=== PATIENT | female | born 1970 | race African-American/Black ===

== ENCOUNTER 2018-06-07 11:21 | Emergency (ER) | payer MEDICAID, OTHER ==
[~2018-06-07] VITALS: Ht 167.6 cm; Wt 103.0 kg
[~2018-06-07 11:21] MED LIST: FLEXIRIL; MOTRIN; TYLENOL
[2018-06-07 11:33] VITALS: BP 148/67
== END 2018-06-07 13:14 | disposition home or self-care (01) ==
LOC: ER 11:21
DX: J40 Bronchitis, not specified as acute or chronic (principal); F41.9 Anxiety disorder, unspecified; M54.30 Sciatica, unspecified side; Z90.710 Acquired absence of both cervix and uterus; Z88.2 Allergy status to sulfonamides; Z88.1 Allergy status to other antibiotic agents; Z98.890 Other specified postprocedural states
CPT/HCPCS: 99283

== ENCOUNTER 2019-06-29 23:58 | Emergency (ER) | payer MEDICAID ==
[~2019-06-29] VITALS: Ht 165.1 cm; Wt 104.3 kg
[2019-06-30 00:13] VITALS: BP 17/77
[2019-06-30] MEDS ORDERED: ACETAMINOPHEN 325MG TABLET PO ONE (00:30)
== END 2019-06-30 01:53 | disposition home or self-care (01) ==
LOC: ER 23:58
DX: J06.9 Acute upper respiratory infection, unspecified (principal)
CPT/HCPCS: 71045; 99283

== ENCOUNTER 2019-07-29 10:37 | Emergency (ER) | payer MEDICAID ==
[~2019-07-29] VITALS: Ht 167.6 cm; Wt 110.0 kg
[2019-07-29 12:29] LABS: CLARITY URINE CLEAR (CLEAR); COLOR URINE YELLOW (YELLOW); KETONES URINE NEGATIVE (NEGATIVE); LEUKOCYTE ESTERASE URINE 2+ (NEGATIVE); NITRITE URINE NEGATIVE (NEGATIVE); OCCULT BLOOD URINE TRACE (NEGATIVE); PH URINE 5.5 (4.5-8.0); PROTEIN URINE NEGATIVE (NEGATIVE); SPECIFIC GRAVITY URINE 1.022 (1.005-1.030); UROBILINOGEN URINE 0.2 E.U./dL (0.2-1.0)
[2019-07-29 13:41] VITALS: BP 142/73
== END 2019-07-29 13:49 | disposition home or self-care (01) ==
LOC: ER 10:54
DX: J40 Bronchitis, not specified as acute or chronic (principal); N39.0 Urinary tract infection, site not specified; Z88.2 Allergy status to sulfonamides; Z88.0 Allergy status to penicillin
CPT/HCPCS: 71045; 81003; 93005; 99285

== ENCOUNTER 2019-07-31 04:46 | Emergency (ER) | payer MEDICAID ==
[~2019-07-31] VITALS: Ht 167.6 cm; Wt 102.0 kg
[2019-07-31 06:08] LABS: CHLORIDE 111 mEq/L (98-107)
[2019-07-31 06:19] LABS: BASOPHILS % 0.6 % (0.0-2.0); EOSINOPHILS % 3.4 % (0.0-5.0); HEMATOCRIT. 36.9 % (36.0-48.0); HEMOGLOBIN. 12.5 g/dL (12.0-16.0); LYMPHOCYTES % 32.7 % (20.0-50.0); MEAN CORPUSCULAR HEMOGLOBIN 29.8 pg (28.0-32.0); MEAN CORPUSCULAR VOLUME 87.9 fL (81.0-99.0); MEAN PLATELET VOLUME 8.6 fl (7.4-10.4); MONOCYTES % 10.5 % (2.0-8.0); NEUTROPHILS % 52.8 % (40.0-76.0); PLATELET 244 x1000/uL (130-400); RED CELL DISTRIBUTION WIDTH 12.9 % (11.6-14.6)
[2019-07-31] MEDS ORDERED: LORAZEPAM 1MG TABLET PO ONE (06:30)
[2019-07-31 07:36] VITALS: BP 120/78
== END 2019-07-31 07:55 | disposition home or self-care (01) ==
LOC: ER 04:46
DX: R07.89 Other chest pain (principal); F41.9 Anxiety disorder, unspecified; Z88.2 Allergy status to sulfonamides; Z88.1 Allergy status to other antibiotic agents; Z79.899 Other long term (current) drug therapy
CPT/HCPCS: 36415; 71045; 80053; 83880; 84484; 85025; 99284

== ENCOUNTER 2019-12-26 10:03 | Emergency (ER) | payer MEDICAID ==
[~2019-12-26] VITALS: Ht 165.1 cm; Wt 95.4 kg
[2019-12-26] MEDS ORDERED: NITROGLYCERIN 0.4MG TABLET SL SL PRN (10:45)
[2019-12-26 11:27] LABS: BASOPHILS % 0.8 % (0.0-2.0); EOSINOPHILS % 2.7 % (0.0-5.0); HEMATOCRIT. 36.5 % (36.0-48.0); LYMPHOCYTES % 39.2 % (20.0-50.0); MEAN CORPUSCULAR HEMOGLOBIN 29.4 pg (28.0-32.0); MEAN CORPUSCULAR VOLUME 89.4 fL (81.0-99.0); MONOCYTES % 9.4 % (2.0-8.0); NEUTROPHILS % 47.9 % (40.0-76.0); PLATELET 210 x1000/uL (130-400); RED BLOOD CELL COUNT 4.08 mill/uL (4.2-5.4); RED CELL DISTRIBUTION WIDTH 13.4 % (11.6-14.6)
[2019-12-26 11:30] LABS: CHLORIDE 110 mEq/L (98-107)
[2019-12-26 13:16] VITALS: BP 160/85
== END 2019-12-26 13:31 | disposition home or self-care (01) ==
LOC: ER 10:18
DX: R07.89 Other chest pain (principal); R03.0 Elevated blood-pressure reading, without diagnosis of hypertension; F41.9 Anxiety disorder, unspecified
CPT/HCPCS: 36415; 71045; 80053; 83880; 84484; 85025; 93005; 99285

== ENCOUNTER 2020-05-14 00:45 | Emergency (ER) | payer MEDICAID, OTHER ==
[~2020-05-14] VITALS: Ht 167.6 cm; Wt 94.0 kg
[2020-05-14] MEDS ORDERED: KETOROLAC 30MG/ML VIAL IM ONE (02:15)
[2020-05-14 02:27] VITALS: BP 134/69
[2020-05-14] MEDS ORDERED: IBUP-1523 MT (02:44)
== END 2020-05-14 03:12 | disposition home or self-care (01) ==
LOC: ER 00:45
DX: M54.5 Low back pain (principal); Z87.828 Personal history of other (healed) physical injury and trauma; R03.0 Elevated blood-pressure reading, without diagnosis of hypertension; N39.0 Urinary tract infection, site not specified
CPT/HCPCS: 81025; 96372; 99283; J1885

== ENCOUNTER 2021-02-08 09:25 | Emergency (ER) | payer OTHER ==
[~2021-02-08] VITALS: Ht 165.1 cm; Wt 104.0 kg
[~2021-02-08 09:25] MED LIST changes: +IBUP-1523 MT
[2021-02-08 09:33] VITALS: BP 135/70
[2021-02-08] MEDS ORDERED: ALBU6.7H9 INH (10:29)
[2021-02-08] MEDS ORDERED: P20 MT (10:29)
== END 2021-02-08 10:54 | disposition home or self-care (01) ==
LOC: ER 09:25
DX: J20.9 Acute bronchitis, unspecified (principal); R06.2 Wheezing; Z20.822 Contact with and (suspected) exposure to COVID-19; Z90.710 Acquired absence of both cervix and uterus; Z88.2 Allergy status to sulfonamides; Z88.0 Allergy status to penicillin
CPT/HCPCS: 71045; 99284; C9803; U0003; U0005

== ENCOUNTER 2021-07-15 06:33 | Inpatient (IN) | payer OTHER ==
[~2021-07-15] VITALS: Ht 167.6 cm; Wt 104.4 kg
[~2021-07-15 06:33] MED LIST changes: +ALBU6.7H9 INH; +P20 MT
[2021-07-15 07:22] LABS: HEMATOCRIT. 38.7 % (36.0-48.0); HEMOGLOBIN. 12.8 g/dL (12.0-16.0); MEAN PLATELET VOLUME 8.5 fl (7.4-10.4); PLATELET 242 x1000/uL (130-400); RED CELL DISTRIBUTION WIDTH 13.1 % (11.6-14.6)
[2021-07-15 07:28] LABS: CHLORIDE 111 mEq/L (98-107)
[2021-07-15 07:32] LABS: PROTHROMBIN TIME 10.5 sec (9.6-11.0)
[2021-07-15 07:58] LABS: PLATELET ESTIMATE NORMAL
[2021-07-15] MEDS ORDERED: ASPIRIN 325MG EC TABLET PO ONE (08:00)
[2021-07-15] MEDS ORDERED: POTASSIUM CHLORIDE 20MEQ TABLET SR PO ONE (08:00)
[2021-07-15] MEDS ORDERED: SERTRALINE HCL 100MG TABLET PO SCH (08:30)
[2021-07-15] MEDS ORDERED: SODIUM CHLORIDE 0.9% 1,000 ML IV ONE ×2 (09:30→13:15)
[2021-07-15 09:43] LABS: CLARITY URINE CLOUDY (CLEAR); COLOR URINE ORANGE (YELLOW); KETONES URINE NEGATIVE (NEGATIVE); LEUKOCYTE ESTERASE URINE 2+ (NEGATIVE); NITRITE URINE POSITIVE (NEGATIVE); OCCULT BLOOD URINE NEGATIVE (NEGATIVE); PROTEIN URINE 1+ (NEGATIVE); SPECIFIC GRAVITY URINE 1.033 (1.005-1.030)
[2021-07-15] MEDS ORDERED: CEFTRIAXONE 1 G PREMIX 50 ML IV ONE (10:15)
[2021-07-15] MEDS ORDERED: CEFTRIAXONE 1 G PREMIX 50 ML IV SCH (14:15)
[2021-07-15] MEDS ORDERED: LORAZEPAM 0.5MG TABLET PO SCH (16:00)
[2021-07-15 17:30] VITALS: BP 137/62
[2021-07-15 20:00] VITALS: BP_SYST 132; BP_SYST 138; BP_DIAS 57; BP_DIAS 72
[2021-07-16] VITALS: BP 138/87
[2021-07-16 04:00] VITALS: BP 113/67
[2021-07-16 06:50] LABS: BASOPHILS % 0.3 % (0.0-2.0); EOSINOPHILS % 7.2 % (0.0-5.0); HEMATOCRIT. 35.2 % (36.0-48.0); HEMOGLOBIN. 11.6 g/dL (12.0-16.0); LYMPHOCYTES % 22.8 % (20.0-50.0); MEAN CORPUSCULAR HEMOGLOBIN 29.1 pg (28.0-32.0); MEAN PLATELET VOLUME 8.8 fl (7.4-10.4); MONOCYTES % 7.7 % (2.0-8.0); PLATELET 213 x1000/uL (130-400); RED CELL DISTRIBUTION WIDTH 13.4 % (11.6-14.6)
[2021-07-16 07:09] LABS: CHLORIDE 113 mEq/L (98-107)
[2021-07-16 08:00] VITALS: BP 136/67
[2021-07-16] MEDS ORDERED: FISH MT (08:35)
[2021-07-16] MEDS ORDERED: CHOL500051 (08:35)
[2021-07-16] MEDS ORDERED: SERT100T MT (08:35)
[2021-07-16] MEDS ORDERED: LORA-249 MT (08:35)
[2021-07-16] MEDS ORDERED: MULT-1146 MT (08:35)
[2021-07-16] MEDS ORDERED: POTA8CAP20 MT (08:35)
[2021-07-16] MEDS ORDERED: LORAZEPAM 0.5MG TABLET PO PRN (09:00)
[2021-07-16] MEDS ORDERED: CEFTRIAXONE 1,000 MG in DEXTROSE 5% WATER 50 ML IV SCH ×4 (09:00)
[2021-07-16] MEDS ORDERED: ACETAMINOPHEN 325MG TABLET PO PRN (09:15)
[2021-07-16 09:28] LABS: *AMPHETAMINES SCREEN URINE NEGATIVE (NEGATIVE); *BARBITURATES SCREEN URINE NEGATIVE (NEGATIVE); *BENZODIAZEPINES SCREEN URINE NEGATIVE (NEGATIVE); *COCAINE SCREEN URINE NEGATIVE (NEGATIVE); CANNABINOID URINE SCREEN NEGATIVE (NEGATIVE); METHADONE URINE SCREEN NEGATIVE (NEGATIVE); OPIATES URINE SCREEN NEGATIVE (NEGATIVE); PHENCYCLIDINE URINE SCREEN NEGATIVE (NEGATIVE)
[2021-07-16] MEDS ORDERED: SERTRALINE HCL 100MG TABLET PO SCH (09:30)
[2021-07-16 12:00] VITALS: BP 135/79
[2021-07-16] MEDS ORDERED: LEVO500T90 MT (12:10)
[2021-07-16 13:23] VITALS: BP 135/79
[2021-07-19 04:11] LABS: NEISSERIA GONORRHOEAE NAA Negative (Negative)
== END 2021-07-16 14:10 | disposition home or self-care (01) | DRG 720 ==
LOC: ER 06:33 → EDBEDREQTM 12:57 → 6WST 12:57 → EDBEDREQSVC 13:01 → EDBEDREQ 13:01 → ENRESERV 15:36
PROVIDERS: ADMIT Internal Medicine; ATTEND Internal Medicine
DX: A41.9 Sepsis, unspecified organism (principal); E44.1 Mild protein-calorie malnutrition; E87.8 Other disorders of electrolyte and fluid balance, not elsewhere classified; E87.6 Hypokalemia; G90.8 Other disorders of autonomic nervous system; E66.9 Obesity, unspecified; F41.9 Anxiety disorder, unspecified; N39.0 Urinary tract infection, site not specified; Z68.37 Body mass index [BMI] 37.0-37.9, adult; Z90.710 Acquired absence of both cervix and uterus; Z88.1 Allergy status to other antibiotic agents; Z88.2 Allergy status to sulfonamides; Z88.8 Allergy status to other drugs, medicaments and biological substances; Z79.899 Other long term (current) drug therapy
CPT/HCPCS: 36415; 71045; 80048; 80053; 80305; 81003; 83605; 83880; 84484; 85025; 87491; 87591; 93005; 99291; J0696; J7030; J7060

== ENCOUNTER 2021-08-21 21:38 | Emergency (ER) | payer OTHER ==
[~2021-08-21] VITALS: Ht 165.1 cm; Wt 102.0 kg
[~2021-08-21 21:38] MED LIST changes: -ALBU6.7H9 INH; +CHOL500051; +FISH MT; -FLEXIRIL; -IBUP-1523 MT; +LEVO500T90 MT; +LORA-249 MT; -MOTRIN; +MULT-1146 MT; -P20 MT; +POTA8CAP20 MT; +SERT100T MT; -TYLENOL
[2021-08-21 21:59] VITALS: BP 140/74
[2021-08-21] MEDS ORDERED: ASPIRIN 81MG TABLET PO ONE (23:00)
== END 2021-08-21 22:00 | disposition left against medical advice (07) ==
LOC: ER 21:51
DX: Z53.21 Procedure and treatment not carried out due to patient leaving prior to being seen by health care provider (principal)
CPT/HCPCS: 93005